=== PATIENT | female | born 1955 | race Caucasian/White ===

== ENCOUNTER 2017-04-30 22:49 | Inpatient (IN) | payer OTHER ==
[~2017-04-30] VITALS: Ht 152.4 cm; Wt 78.0 kg
[~2017-04-30 22:49] MED LIST: ATOR80TA75 PO; CLIN-73 PO; GABA300C16 PO; GLIP5TAB13 PO; LABE100T3 PO; LACT1CAP28 PO; LEVO500T72 PO; LISI40TA9 PO; MTF1000T PO; MULT-761 PO; OMEP20CA16 PO; TRAM-40 PO
[2017-05-01] VITALS (11 sets, daily range): BP systolic 120–162; BP diastolic 57–77; PULSE 80–96; RESP 18–20; Ht 152.4 cm; Wt 78.0 kg
[2017-05-01] MEDS ORDERED: ACET-141 PO (03:38)
[2017-05-01] MEDS ORDERED: FER325 PO (03:38)
[2017-05-01] MEDS ORDERED: POLY17PO3 PO (03:38)
[2017-05-01] MEDS ORDERED: METO-448 PO (03:38)
[2017-05-01] MEDS ORDERED: SERT50TA6 PO (03:38)
[2017-05-01] MEDS ORDERED: GABA300C16 PO (03:38)
[2017-05-01] MEDS ORDERED: VENL75TA2 PO (03:38)
[2017-05-01] MEDS ORDERED: LISI10TA2 PO (03:38)
[2017-05-01] MEDS ORDERED: ATOR80TA75 PO (03:38)
[2017-05-01] MEDS ORDERED: MTF1000T PO (03:38)
[2017-05-01] MEDS ORDERED: ONDANSETRON 4 MG INJ IV PRN (04:00)
[2017-05-01] MEDS ORDERED: GLUCAGON 1 MG INJ IM PRN (04:00)
[2017-05-01] MEDS ORDERED: GLUCOSE GEL 15 GRAM TUBE PO PRN ×2 (04:00)
[2017-05-01] MEDS ORDERED: POLYETHYLENE GLYCOL 17 GM PACKET PO PRN (04:00)
[2017-05-01] MEDS ORDERED: DEXTROSE 50% 50 ML SYRINGE IV PRN ×2 (04:00)
[2017-05-01] MEDS ORDERED: GLUCOSE GEL 15 GRAM TUBE BUCCAL PRN (04:00)
[2017-05-01] MEDS: ACETAMINOPHEN 325 MG TAB PO PRN ×2 (05:39→21:26)
--- NOTE | 2017-05-01 07:13 | HP ---
Date/Time of Note Date/Time of Note DATE: 05/01/17 TIME: 07:09 Assessment/Plan VTE Prophylaxis VTE Prophylaxis Intervention: SCD's Lines/Catheters IV Catheter Type (from Nrs): Saline Lock Urinary Cath still in place: No Assessment/Plan Assessment/Plan 1. Right sided rib pain: pt had rib fx several months ago after she fell down. this is acute on chronic pain - will obtain imaging for evaluation of fx - pain mgmt - physical therapy eval 2. History of hypertension: Blood pressure at goal -Continue antihypertensives with adjustment as needed 3. Diabetes -Insulin while in-house 5. History of dyslipidemia -Continue home med 5. Hyperkalemia, per outside hospital record -We will recheck lab here 6. Debility -Physical therapy evaluation -We will order x-ray of her knee given reported injury several months ago. HPI/ROS Admit Date/Time Admit Date/Time May 01, 2017 at 02:36 Hx of Present Illness This is a 61-year-old obese female with a history of diabetes, hypertension, dyslipidemia, left foot ulcer who initially presented to [facility] c/o right sided abd pain. She was transferred to [facility] for insurance. She is accompanied by her who also provided information. Pt said she fell down several months ago sustaining right sided rib fx and knee pain. Her current pain is where she sustained rib fx. She has been requiring assistance from family to get in and out of bed and for ambulation. At the outside hospital her potassium was noted to be 5.8. PMH/Family/Social Social History Smoking Status: Never smoker Exam/Review of Systems Vital Signs Vitals Vital Signs Date Time Temp Pulse Resp B/P Pulse Ox O2 Delivery O2 Flow Rate FiO2 05/01/17 04:16 91 05/01/17 04:00 97.6 20 120/69 96 Intake and Output 04/30/17 04/30/17 05/01/17 15:00 23:00 07:00 Intake Total 250 ml Balance 250 ml Medications Medications Current Medications Atorvastatin Calcium (Lipitor) 80 mg QHS PO ; Start 05/01/17 at 21:00 Ferrous Sulfate (Ferrous Sulfate (Ec)) 325 mg DAILY PO ; Start 05/01/17 at 09:00 Gabapentin (Neurontin) 300 mg BID PO ; Start 05/01/17 at 09:00 Lisinopril (Zestril) 10 mg DAILY PO ; Start 05/01/17 at 09:00 Metoprolol Tartrate (Lopressor) 25 mg BID PO ; Start 05/01/17 at 09:00 Polyethylene Glycol (Miralax) 17 gm DAILY PRN PO CONSTIPATION; Start 05/01/17 at 04:00 Sertraline HCl (Zoloft) 50 mg DAILY PO ; Start 05/01/17 at 09:00 Venlafaxine HCl (Effexor Xr) 75 mg DAILY PO ; Start 05/01/17 at 09:00 Acetaminophen (Tylenol Tab) 650 mg Q6H PRN PO PAIN AND OR ELEVATED TEMP Last administered on 05/01/17t 05:39; Admin Dose 650 MG; Start 05/01/17 at 04:00 Ondansetron HCl (Zofran Inj) 4 mg Q6H PRN IV NAUSEA AND/OR VOMITING; Start 05/01 at 04:00 Morphine Sulfate (morphine) 2 mg Q4H PRN IV PAIN LEVEL 6-10; Start 05/01/17 at 04:00 Heparin Sodium (Porcine) (Heparin (5000 Units/0.5 ml)) 5,000 unit BID SC ; Start 05/01/17 at 09:00 Diagnostic Test (Pha) (Accu-Chek) 1 ea 02 XX ; Start 05/02/17 at 02:00 Insulin Glargine (Lantus) 10 unit QHS SC ; Start 05/01/17 at 21:00 Miscellaneous Information 1 ea NOTE XX ; Start 05/01/17 at 04:00 Glucose (Glutose) 15 gm Q15M PRN PO DECREASED GLUCOSE; Start 05/01/17 at 04:00 Glucose (Glutose) 22.5 gm Q15M PRN PO DECREASED GLUCOSE; Start 05/01/17 at 04:00 Dextrose (D50w Syringe) 25 ml Q15M PRN IV DECREASED GLUCOSE; Start 05/01/17 at 04:00 Dextrose (D50w Syringe) 50 ml Q15M PRN IV DECREASED GLUCOSE; Start 05/01/17 at 04:00 Glucagon (Glucagen) 1 mg Q15M PRN IM DECREASED GLUCOSE; Start 05/01/17 at 04:00 Glucose (Glutose) 15 gm Q15M PRN BUCCAL DECREASED GLUCOSE; Start 05/01/17 at 04: 00 SKYLER CARMICHAEL MD May 01, 2017 07:13
[2017-05-01 07:47] LABS: ABNORMAL IP MESSAGE 1; BASOPHIL # 0.1 10^3/ul (0.0-0.1); BASOPHILS % 0.9 % (0.0-2.0); EOSINOPHILS # 0.6 10^3/ul (0.0-0.5); EOSINOPHILS % 4.4 % (0.0-7.0); HEMATOCRIT 30.9 % (37.0-47.0); HEMOGLOBIN 9.2 g/dl (12.0-16.0); LYMPHOCYTES # 5.7 10^3/ul (0.8-2.9); LYMPHOCYTES % 42.4 % (15.0-51.0); MEAN CORPUSCULAR HEMOGLOBIN 29.4 pg (29.0-33.0); MEAN CORPUSCULAR HGB CONC 29.8 g/dl (32.0-37.0); MEAN CORPUSCULAR VOLUME 98.7 fl (82.0-101.0); MEAN PLATELET VOLUME 8.8 fl (7.4-10.4); MONOCYTE # 1.1 10^3/ul (0.3-0.9); MONOCYTES % 8.3 % (0.0-11.0); NEUTROPHILS % 42.5 % (39.0-77.0); PLATELET COUNT 546 10^3/UL (140-415); RED BLOOD COUNT 3.13 10^6/ul (4.20-5.40); RED CELL DISTRIBUTION WIDTH 15.8 % (11.5-14.5); WHITE BLOOD COUNT 13.5 10^3/ul (4.8-10.8)
[2017-05-01 07:49] LABS: POSITIVE DIFF @See below
[2017-05-01] MEDS: INSULIN ASPART [NOVOLOG] 3 ML PEN SC SCH ×4 (07:49→21:00)
[2017-05-01 08:18] LABS: ALBUMIN 2.8 g/dl (3.3-4.9); ALBUMIN/GLOBULIN RATIO 1.03; CALCIUM 8.4 mg/dl (8.4-10.2); CREATININE 0.72 mg/dl (0.44-1.00); POTASSIUM 4.1 mmol/L (3.5-5.1); TOTAL PROTEIN 5.5 g/dl (6.1-8.1)
[2017-05-01] MEDS: FERROUS SULFATE (EC) 325 MG TAB PO SCH (08:35)
[2017-05-01] MEDS: SERTRALINE 50 MG TAB PO SCH (08:35)
[2017-05-01] MEDS: GABAPENTIN 300 MG CAP PO SCH ×2 (08:35→21:21)
[2017-05-01] MEDS: LISINOPRIL 10 MG TAB PO SCH (08:36)
[2017-05-01] MEDS: METOPROLOL 25 MG TAB PO SCH ×2 (08:36→21:21)
[2017-05-01] MEDS: VENLAFAXINE (XR) 75 MG CAP PO SCH (08:36)
[2017-05-01] MEDS: HEPARIN 5,000 UNIT/0.5 ML VIAL SC SCH ×2 (08:38→21:25)
--- NOTE | 2017-05-01 18:43 | RADRPT ---
PROCEDURE: XR Chest. CLINICAL INDICATION: Right-sided rib fracture TECHNIQUE: Single frontal chest x-ray. COMPARISON: None. FINDINGS: There is no focal consolidation, pleural effusion or pneumothorax. The aorta and cardiac silhouette are within normal limits. The osseous structures are intact. The rib fractures are all well apprec iated on this study. IMPRESSION: 1. No acute infiltrate. 2. No evidence for pleural effusion or pneumothorax. RPTAT: QQ .Skip Manning MD, Date Time Electronically viewed and signed by .Skip Manning MD, on 05/01/2017 18:43 .d/
--- NOTE | 2017-05-01 18:44 | RADRPT ---
PROCEDURE: XR Knee. CLINICAL INDICATION: Clinical concern is for a fracture. Left knee pain. TECHNIQUE: Three views of the left knee are available for review. COMPARISON: None available FINDINGS: Marginal osteophyte formation and subchondral sclerosis seen at all 3 compartments. Moderate narrow ing is seen at the lateral femorotibial compartment . Severe narrowing is seen at the medial and th e patellofemoral compartments. No acute osseous abnormality. Small joint effusion. IMPRESSION: 1. Tricompartmental arthrosis noting severe narrowing of the medial and patellofemoral compartments . 2. Joint effusion and intrarticular osseous bodies. 3. No definite acute osseous abnormality. RPTAT: QQ .Skip Manning MD, MD Date Time Electronically viewed and signed by .Skip Manning MD, on 05/01/2017 18:44 .d/
--- NOTE | 2017-05-01 18:47 | RADRPT ---
PROCEDURE: XR Knee. CLINICAL INDICATION: Knee pain TECHNIQUE: Three views of the right knee are available for review. COMPARISON: None available FINDINGS: There is a linear band of sclerosis at the proximal tibial diaphysis, suspicious for a stress/insuff iciency type fracture. Bulky marginal osteophyte formation and subchondral sclerosis is seen at all 3 compartments. Severe narrowing is seen at the medial and patellofemoral compartments. Moderate narrowing is seen at the lateral femoral tibial compartment. Joint effusion. Intrarticular bodies a re likely present. IMPRESSION: 1. Tricompartmental arthrosis dominant the medial and patellofemoral compartments noting severe dalila nt space narrowing. 2. Linear band of sclerosis seen at the proximal tibial metadiaphysis, suspicious for a stress/insu fficiency type fracture. MRI of the knee may be obtained for additional assessment. 3. Joint effusion. RPTAT: QQ .Skip Manning MD, MD Date Time Electronically viewed and signed by .Skip Manning MD, on 05/01/2017 18:46 .d/
[2017-05-01] MEDS: ATORVASTATIN 80 MG TAB PO SCH (21:21)
[2017-05-01] MEDS: INSULIN GLARGINE [LANtus] 3 ML PEN SC SCH (21:25)
[2017-05-02] VITALS (9 sets, daily range): BP systolic 119–145; BP diastolic 62–74; PULSE 76–92; RESP 17–21
[2017-05-02] MEDS: ACCU-CHEK XX SCH ×2 (02:00→23:40)
[2017-05-02] MEDS ORDERED: ACCU-CHEK XX SCH (02:00)
[2017-05-02] MEDS: INSULIN ASPART [NOVOLOG] 3 ML PEN SC SCH ×4 (07:40→20:36)
[2017-05-02] MEDS: FERROUS SULFATE (EC) 325 MG TAB PO SCH (08:16)
[2017-05-02] MEDS: VENLAFAXINE (XR) 75 MG CAP PO SCH (08:16)
[2017-05-02] MEDS: LISINOPRIL 10 MG TAB PO SCH (08:17)
[2017-05-02] MEDS: SERTRALINE 50 MG TAB PO SCH (08:17)
[2017-05-02] MEDS: GABAPENTIN 300 MG CAP PO SCH ×2 (08:17→20:36)
[2017-05-02] MEDS: METOPROLOL 25 MG TAB PO SCH ×2 (08:18→20:36)
[2017-05-02] MEDS: HEPARIN 5,000 UNIT/0.5 ML VIAL SC SCH ×2 (08:19→20:35)
[2017-05-02 08:20] LABS: ABNORMAL IP MESSAGE 1; BASOPHIL # 0.1 10^3/ul (0.0-0.1); BASOPHILS % 0.6 % (0.0-2.0); EOSINOPHILS # 0.6 10^3/ul (0.0-0.5); EOSINOPHILS % 5.3 % (0.0-7.0); HEMATOCRIT 31.9 % (37.0-47.0); HEMOGLOBIN 9.8 g/dl (12.0-16.0); LYMPHOCYTES # 5.4 10^3/ul (0.8-2.9); LYMPHOCYTES % 47.6 % (15.0-51.0); MEAN CORPUSCULAR HEMOGLOBIN 29.2 pg (29.0-33.0); MEAN CORPUSCULAR HGB CONC 30.7 g/dl (32.0-37.0); MEAN CORPUSCULAR VOLUME 94.9 fl (82.0-101.0); MEAN PLATELET VOLUME 8.9 fl (7.4-10.4); MONOCYTE # 0.8 10^3/ul (0.3-0.9); MONOCYTES % 6.8 % (0.0-11.0); PLATELET COUNT 564 10^3/UL (140-415); RED BLOOD COUNT 3.36 10^6/ul (4.20-5.40); RED CELL DISTRIBUTION WIDTH 15.7 % (11.5-14.5); WHITE BLOOD COUNT 11.3 10^3/ul (4.8-10.8)
[2017-05-02 08:33] LABS: POSITIVE DIFF @See below
[2017-05-02 08:37] LABS: CALCIUM 8.9 mg/dl (8.4-10.2); CREATININE 0.59 mg/dl (0.44-1.00); POTASSIUM 3.9 mmol/L (3.5-5.1)
[2017-05-02] MEDS ORDERED: LISI10TA2 PO (10:08)
[2017-05-02] MEDS ORDERED: HYDR-906 PO (10:08)
[2017-05-02] MEDS ORDERED: LEVO500T72 PO (10:08)
[2017-05-02] MEDS ORDERED: METO-448 PO (10:08)
--- NOTE | 2017-05-02 10:17 | PDOCDIS ---
DELORIS GARCIA 05/02/17 1017: Discharge Instructions DIAGNOSIS Discharge Diagnosis 1. Right sided rib pain: pt had rib fx several months ago after she fell down. acute on chronic pain 2. History of hypertension: 3. Diabetes 5. History of dyslipidemia 5. Hyperkalemia, 6. Debility HOME CARE INSTRUCTIONS: Special Diet: carbohydrate controlled FOLLOW UP/APPOINTMENTS Follow-up Plan 1. Follow up with your primary care provider in one week MARIA DEL CARMEN AGUILAR NP 05/06/17 1509: Discharge Instructions DIAGNOSIS Discharge Diagnosis UTI CONDITION Patient Condition: Stable OTHER ORDERS: Other Orders: 1. Carbohydrate controlled diet. 2. Take medications as per prescription. Continue IV antibiotics until 2016. DELORIS GARCIA May 02, 2017 10:17 MARIA DEL CARMEN AGUILAR NP May 06, 2017 15:09
--- NOTE | 2017-05-02 13:20 | PN ---
Date/Time of Note Date/Time of Note DATE: 05/02/17 TIME: 13:12 Assessment/Plan VTE Prophylaxis VTE Prophylaxis Intervention: heparin Lines/Catheters IV Catheter Type (from Nrsg): Saline Lock Assessment/Plan Chief Complaint/Hosp Course Assessment and plan 1. Right-sided rib pain. Patient reportedly had fracture of this several months ago when she fell down. Likely acute on chronic. Continue with pain management. Improving at present. 2. Deconditioning. Patient with reports of bilateral knee pain. Patient noted with arthritis. Physical therapy to follow. 3. Suspect stress fracture of proximal tibial metadiaphysis (right). Will get MRI of right knee 4. Diabetes. Continue insulin regimen 5. Dyslipidemia. Continue on statin medication 6. Hypertension. Continue antihypertensives and adjust needed Disposition plan: MRI of the right knee. Await physical therapy evaluation. Will plan for possible halfway facility versus ARU upon d/c Discussed plan of care with Dr. Nelson Problems: Subjective 24 Hr Interval Summary Free Text/Dictation Still reports having pain on left knee. Exam/Review of Systems Vital Signs Vitals Vital Signs Date Time Temp Pulse Resp B/P Pulse Ox O2 Delivery O2 Flow Rate FiO2 05/02/17 12:06 76 05/02/17 12:05 97.7 18 129/74 98 Intake and Output 05/01/17 05/01/17 05/02/17 15:00 23:00 07:00 Intake Total 400 ml 500 ml Output Total 750 ml Balance 400 ml -250 ml Exam Constitutional: alert, oriented Psych: nl mood/affect Head: normocephalic Respiratory: clear to auscultation, normal air movement Cardiovascular: regular rate and rhythm Gastrointestinal: non-tender, soft Musculoskeletal: swelling (left knee) Neurological: [employer] II-XII intact, nl mental status, nl speech Skin: nl turgor Results Result Diagram: 05/02/17 0733 05/02/17 0733 Results 24 hrs Laboratory Tests Test 05/01/17 17:13 05/01/17 21:20 05/02/17 07:33 05/02/17 11:21 Bedside Glucose 85 100 92 99 White Blood Count 11.3 H Red Blood Count 3.36 L Hemoglobin 9.8 L Hematocrit 31.9 L Mean Corpuscular Volume 94.9 Mean Corpuscular Hemoglobin 29.2 Mean Corpuscular Hemoglobin Concent 30.7 L Red Cell Distribution Width 15.7 H Platelet Count 564 H Mean Platelet Volume 8.9 Neutrophils % 39.0 Lymphocytes % 47.6 Monocytes % 6.8 Eosinophils % 5.3 Basophils % 0.6 Nucleated Red Blood Cells % 0.0 Neutrophils # (Manual) 4.4 Lymphocytes # 5.4 H Monocytes # 0.8 Eosinophils # 0.6 H Basophils # 0.1 Nucleated Red Blood Cells # 0.0 Sodium Level 141 Potassium Level 3.9 Chloride Level 108 Carbon Dioxide Level 25 Anion Gap 12 Blood Urea Nitrogen 7 Creatinine 0.59 Glucose Level 90 Calcium Level 8.9 Medications Medications Current Medications Atorvastatin Calcium (Lipitor) 80 mg QHS PO Last administered on 05/01/17 21:21 ; Admin Dose 80 MG; Start 05/01/17 at 21:00 Ferrous Sulfate (Ferrous Sulfate (Ec)) 325 mg DAILY PO Last administered on 05/02 08:16; Admin Dose 325 MG; Start 05/01/17 at 09:00 Gabapentin (Neurontin) 300 mg BID PO Last administered on 05/02/17 08:17; Admin Dose 300 MG; Start 05/01/17 at 09:00 Lisinopril (Zestril) 10 mg DAILY PO Last administered on 05/02/17 08:17; Admin Dose 10 MG; Start 05/01/17 at 09:00 Metoprolol Tartrate (Lopressor) 25 mg BID PO Last administered on 05/02/17 08: 18; Admin Dose 25 MG; Start 05/01/17 at 09:00 Polyethylene Glycol (Miralax) 17 gm DAILY PRN PO CONSTIPATION; Start 05/01/17 at 04:00 Sertraline HCl (Zoloft) 50 mg DAILY PO Last administered on 05/02/17 08:17; Admin Dose 50 MG; Start 05/01/17 at 09:00 Venlafaxine HCl (Effexor Xr) 75 mg DAILY PO Last administered on 05/02/17 08:16 ; Admin Dose 75 MG; Start 05/01/17 at 09:00 Acetaminophen (Tylenol Tab) 650 mg Q6H PRN PO PAIN AND OR ELEVATED TEMP Last administered on 05/01/17 21:26; Admin Dose 650 MG; Start 05/01/17 at 04:00 Ondansetron HCl (Zofran Inj) 4 mg Q6H PRN IV NAUSEA AND/OR VOMITING; Start 05/01 at 04:00 Morphine Sulfate (morphine) 2 mg Q4H PRN IV PAIN LEVEL 6-10; Start 05/01/17 at 04:00 Heparin Sodium (Porcine) (Heparin (5000 Units/0.5 ml)) 5,000 unit BID SC Last administered on 05/02/17 08:19; Admin Dose 5,000 UNIT; Start 05/01/17 at 09:00 Diagnostic Test (Pha) (Accu-Chek) 1 ea 02 XX ; Start 05/02/17 at 02:00 Insulin Glargine (Lantus) 10 unit QHS SC Last administered on 05/01/17 21:25; Admin Dose 10 UNIT; Start 05/01/17 at 21:00 Miscellaneous Information 1 ea NOTE XX ; Start 05/01/17 at 04:00 Glucose (Glutose) 15 gm Q15M PRN PO DECREASED GLUCOSE; Start 05/01/17 at 04:00 Glucose (Glutose) 22.5 gm Q15M PRN PO DECREASED GLUCOSE; Start 05/01/17 at 04:00 Dextrose (D50w Syringe) 25 ml Q15M PRN IV DECREASED GLUCOSE; Start 05/01/17 at 04:00 Dextrose (D50w Syringe) 50 ml Q15M PRN IV DECREASED GLUCOSE; Start 05/01/17 at 04:00 Glucagon (Glucagen) 1 mg Q15M PRN IM DECREASED GLUCOSE; Start 05/01/17 at 04:00 Glucose (Glutose) 15 gm Q15M PRN BUCCAL DECREASED GLUCOSE; Start 05/01/17 at 04: 00 DELORIS GARCIA May 02, 2017 13:20
--- NOTE | 2017-05-02 16:53 | RADRPT ---
PROCEDURE: MRI OF THE RIGHT KNEE CLINICAL INDICATION: Right knee pain, concern for fracture TECHNIQUE: MRI images of the right knee were obtained in multiple planes utilizing multiple pulse sequences. Images were interpreted on a high-resolution PACS system. COMPARISON: Radiographs of the right knee dated May 01, 2017 and MRI of the left knee Sept2016 FINDINGS: Medial compartment: There is extensive degenerative tearing and maceration of the medial meniscus (s agittal 9 and coronal 15). There is full-thickness chondral loss throughout the medial femorotibia l compartment chronic bone remodelling of the medial femoral condyle and large marginal osteophytes. There is a stress response at the medial tibial plateau. The medial supporting structures are intac t. Lateral compartment: There is no evidence for meniscal degeneration or tear. There is mild lateral femorotibial compartment chondromalacia. There is avascular necrosis at the central/posterior later al femoral condyle (sagittal 20) without evidence of collapse. Intercondylar notch: There is a chronic full-thickness anterior cruciate ligament tear. The posteri or cruciate ligament is intact. Patellofemoral joint: There is moderate to high-grade chondral loss at the central trochlea and mode rate chondromalacia over the patella with large marginal osteophyte formation. The quadriceps and t he patellar tendons are intact. Other findings: There is a moderate sized knee joint effusion bodies decompressing posteriorly into the subpopliteus hiatus.. There is a band of sclerosis along the medial aspect of the proximal tibi al metaphysis (coronal 15), without edema, probably healing changes from a previous stress or insuff iciency fracture. IMPRESSION: 1. Linear band of sclerosis at the proximal tibial metaphysis medially, without edema, likely healin g changes from a previous stress or insufficiency fracture. No acute fracture is identified. 2. Tricompartmental osteoarthrosis, severe and predominant medial femorotibial compartment with a mi ld stress response at the medial tibial plateau. 3. Extensive degenerative tearing of the body and posterior horn of the medial meniscus. 4. Chronic full-thickness anterior cruciate ligament tear. 5. Region of avascular necrosis at the central/posterior lateral femoral condyle without collapse. 6. Moderate sized knee joint effusion with synovitis and numerous bodies decompressing posteriorly i nto the subpopliteus hiatus. RPTAT: UU .Bay Dozier MD, MD Date Time Electronically viewed and signed by .Bay Dozier MD, MD on 05/02/2017 16:53 .K/
--- NOTE | 2017-05-02 16:56 | RADRPT ---
PROCEDURE: MRI OF THE LEFT KNEE CLINICAL INDICATION: Left knee pain, concern for fracture. TECHNIQUE: MRI images of the left knee were obtained utilizing in multiple planes using multiple p ulse sequences. Images were interpreted on a high-resolution PACS system. COMPARISON: None available. FINDINGS: Medial compartment: There is extensive degenerative tearing and partial maceration of the body and p osterior horn of the medial meniscus (coronal 20). There are large marginal osteophytes with diffus e full-thickness chondral loss. There is bowing of the medial supporting structures, which are inta ct.. Lateral compartment: There is no evidence for meniscal degeneration or tear. There is mild lateral femorotibial compartment chondromalacia and fissuring with marginal osteophyte formation. The later al supporting structures are intact.. Intercondylar notch: There is a chronic full-thickness anterior cruciate ligament tear (sagittal 13) . The posterior cruciate ligament is somewhat degenerated but intact. Patellofemoral joint: There is moderate to high-grade chondral loss at the central trochlea and mode rate grade chondral loss over the patella. The quadriceps and the patellar tendons are intact. Other findings: There is a moderate sized knee joint effusion with synovitis. There are numerous catie dies posteriorly, some decompressing into the subpopliteus hiatus. There is no evidence of acute fr acture. There is atrophy of the medial and lateral gastrocnemius musculature, more prominent than th e contralateral knee. IMPRESSION: 1. Tricompartmental osteoarthrosis, severe and predominant the medial femorotibial compartment. 2. Extensive degenerative tearing and partial maceration of the body and posterior of the medial men iscus. 3. Chronic full-thickness anterior cruciate ligament tear. 4. Moderate sized knee joint effusion with synovitis and numerous posterior bodies, some decompressi ng into the subpopliteus hiatus. 5. Particularly prominent medial and lateral gastrocnemius muscle atrophy. 6. No evidence of acute osseous abnormality. RPTAT: UU .Bay Dozier MD, Date Time Electronically viewed and signed by .Bay Dozier MD, on 05/02/2017 16:56 .K/
[2017-05-02] MEDS: INSULIN GLARGINE [LANtus] 3 ML PEN SC SCH (20:35)
[2017-05-02] MEDS: ATORVASTATIN 80 MG TAB PO SCH (20:35)
[2017-05-03] VITALS (12 sets, daily range): BP systolic 93–110; BP diastolic 52–65; PULSE 73–90; RESP 20–21
[2017-05-03] MEDS: PHENAZOPYRIDINE 100 MG TAB PO SCH ×4 (01:31→21:26)
[2017-05-03] MEDS: morphine 2 MG INJ IV PRN ×2 (02:46→18:49)
[2017-05-03] MEDS: ACETAMINOPHEN 325 MG TAB PO PRN ×2 (06:05→18:58)
[2017-05-03 07:08] LABS: BASOPHIL # 0.1 10^3/ul (0.0-0.1); BASOPHILS % 0.7 % (0.0-2.0); EOSINOPHILS # 0.7 10^3/ul (0.0-0.5); HEMATOCRIT 30.8 % (37.0-47.0); HEMOGLOBIN 9.4 g/dl (12.0-16.0); LYMPHOCYTES # 4.8 10^3/ul (0.8-2.9); MEAN CORPUSCULAR HEMOGLOBIN 29.2 pg (29.0-33.0); MEAN CORPUSCULAR HGB CONC 30.5 g/dl (32.0-37.0); MEAN CORPUSCULAR VOLUME 95.7 fl (82.0-101.0); MEAN PLATELET VOLUME 8.9 fl (7.4-10.4); MONOCYTE # 0.8 10^3/ul (0.3-0.9); MONOCYTES % 6.7 % (0.0-11.0); PLATELET COUNT 472 10^3/UL (140-415); RED BLOOD COUNT 3.22 10^6/ul (4.20-5.40); RED CELL DISTRIBUTION WIDTH 15.7 % (11.5-14.5); WHITE BLOOD COUNT 11.3 10^3/ul (4.8-10.8)
[2017-05-03 07:38] LABS: CALCIUM 8.5 mg/dl (8.4-10.2); CREATININE 0.59 mg/dl (0.44-1.00); POTASSIUM 3.4 mmol/L (3.5-5.1)
[2017-05-03] MEDS: INSULIN ASPART [NOVOLOG] 3 ML PEN SC SCH ×4 (08:00→21:00)
[2017-05-03] MEDS: VENLAFAXINE (XR) 75 MG CAP PO SCH (08:07)
[2017-05-03] MEDS: GABAPENTIN 300 MG CAP PO SCH ×2 (08:07→21:02)
[2017-05-03] MEDS: FERROUS SULFATE (EC) 325 MG TAB PO SCH (08:07)
[2017-05-03] MEDS: METOPROLOL 25 MG TAB PO SCH ×2 (08:08→21:00)
[2017-05-03] MEDS: SERTRALINE 50 MG TAB PO SCH (08:08)
[2017-05-03] MEDS: HEPARIN 5,000 UNIT/0.5 ML VIAL SC SCH ×2 (08:09→21:07)
[2017-05-03] MEDS: LISINOPRIL 10 MG TAB PO SCH (09:00)
--- NOTE | 2017-05-03 14:20 | PN ---
Date/Time of Note Date/Time of Note DATE: 05/03/17 TIME: 14:18 Assessment/Plan VTE Prophylaxis VTE Prophylaxis Intervention: heparin Lines/Catheters IV Catheter Type (from [facility]): Saline Lock Urinary Cath still in place: No Assessment/Plan Chief Complaint/Hosp Course 1. Right-sided chest pain. Recent history of chest wall trauma secondary to fall. Current chest x-ray negative for any rib fractures. Continue pain control. 2. Bilateral knee pain. Bilateral knee MRI showing degenerative changes with no evidence of any acute fractures. Continue pain control. 3. Deconditioning. Continue physical therapy. Physical therapy recommending acute rehabilitation evaluation. Will obtain acute rehabilitation evaluation. 4. Type 2 diabetes mellitus. Continue sliding scale insulin. Blood sugars well controlled. 5. Normocytic, normochromic anemia. Monitor H&H closely. Obtain iron panel. 6. Essential hypertension. Continue antihypertensives. 7. Depression. Continue antidepressants. 8. Dyslipidemia. Continue statins. 9. Fluids, electrolytes, and nutrition. Carbohydrate controlled diet. 10. DVT prophylaxis with subcutaneous heparin. 11. Plan. Continue pain control. Replete potassium. Obtain acute rehabilitation evaluation. Case discussed with Dr. Haji. Problems: Subjective 24 Hr Interval Summary Free Text/Dictation Denies any chest pain. Complains of bilateral knee pain. Exam/Review of Systems Vital Signs Vitals Vital Signs Date Time Temp Pulse Resp B/P Pulse Ox O2 Delivery O2 Flow Rate FiO2 05/03/17 12:01 73 05/03/17 11:41 99.1 20 98/58 96 Intake and Output 05/02/17 05/02/17 05/03/17 15:00 23:00 07:00 Intake Total 950 ml Balance 950 ml Exam General: Obese 61 year-old female lying in bed in no apparent distress. HEENT: Normocephalic, atraumatic. Eyes: Anicteric sclerae, conjunctivae clear. ENT: Nasal septum midline, oral mucosa moist. Neck supple, no JVD noticed. Respiratory: Bilaterally clear breath sounds. No use of accessory muscles of respiration. No adventitious breath sounds. Cardiovascular: S1, S2 heard. No murmurs or gallops. Abdomen: Soft, nontender, and nondistended. Bowel sounds positive in all 4 quadrants. Genitourinary: Deferred. Extremities: No cyanosis, no clubbing, no edema. Peripheral pulses palpable. Bilateral knee joint tenderness. Neurologic: Cranial nerves II through XII grossly intact. The patient is awake, alert, and oriented. Skin: Normal skin turgor. No skin rashes. Results Result Diagram: 05/03/1762705/03/17627 Results 24 hrs Laboratory Tests Test 05/02/17 17:22 05/02/17 20:05 05/03/17 06:28 05/03/17 08:06 Bedside Glucose 116 115 90 White Blood Count 11.3 H Red Blood Count 3.22 L Hemoglobin 9.4 L Hematocrit 30.8 L Mean Corpuscular Volume 95.7 Mean Corpuscular Hemoglobin 29.2 Mean Corpuscular Hemoglobin Concent 30.5 L Red Cell Distribution Width 15.7 H Platelet Count 472 H Mean Platelet Volume 8.9 Neutrophils % 44.0 Lymphocytes % 42.0 Monocytes % 6.7 Eosinophils % 6.0 Basophils % 0.7 Nucleated Red Blood Cells % 0.0 Neutrophils # (Manual) 5.0 Lymphocytes # 4.8 H Monocytes # 0.8 Eosinophils # 0.7 H Basophils # 0.1 Nucleated Red Blood Cells # 0.0 Sodium Level 137 Potassium Level 3.4 L Chloride Level 105 Carbon Dioxide Level 26 Anion Gap 9 Blood Urea Nitrogen 7 Creatinine 0.59 Glucose Level 90 Calcium Level 8.5 Test 05/03/17 12:07 Bedside Glucose 93 Medications Medications Current Medications Atorvastatin Calcium (Lipitor) 80 mg QHS PO Last administered on 05/02/17 20:35 ; Admin Dose 80 MG; Start 05/01/17 at 21:00 Ferrous Sulfate (Ferrous Sulfate (Ec)) 325 mg DAILY PO Last administered on 05/03 08:07; Admin Dose 325 MG; Start 05/01/17 at 09:00 Gabapentin (Neurontin) 300 mg BID PO Last administered on 05/03/17 08:07; Admin Dose 300 MG; Start 05/01/17 at 09:00 Lisinopril (Zestril) 10 mg DAILY PO Last administered on 05/02/17 08:17; Admin Dose 10 MG; Start 05/01/17 at 09:00 Metoprolol Tartrate (Lopressor) 25 mg BID PO Last administered on 05/03/17 08: 08; Admin Dose 25 MG; Start 05/01/17 at 09:00 Polyethylene Glycol (Miralax) 17 gm DAILY PRN PO CONSTIPATION; Start 05/01/17 at 04:00 Sertraline HCl (Zoloft) 50 mg DAILY PO Last administered on 05/03/17 08:08; Admin Dose 50 MG; Start 05/01/17 at 09:00 Venlafaxine HCl (Effexor Xr) 75 mg DAILY PO Last administered on 05/03/17 08:07 ; Admin Dose 75 MG; Start 05/01/17 at 09:00 Acetaminophen (Tylenol Tab) 650 mg Q6H PRN PO PAIN AND OR ELEVATED TEMP Last administered on 05/03/17 06:05; Admin Dose 650 MG; Start 05/01/17 at 04:00 Ondansetron HCl (Zofran Inj) 4 mg Q6H PRN IV NAUSEA AND/OR VOMITING; Start 05/01 at 04:00 Morphine Sulfate (morphine) 2 mg Q4H PRN IV PAIN LEVEL 6-10 Last administered on 05/03/17 02:46; Admin Dose 2 MG; Start 05/01/17 at 04:00 Heparin Sodium (Porcine) (Heparin (5000 Units/0.5 ml)) 5,000 unit BID SC Last administered on 05/03/17 08:09; Admin Dose 5,000 UNIT; Start 05/01/17 at 09:00 Diagnostic Test (Pha) (Accu-Chek) 1 ea 02 XX ; Start 05/02/17 at 02:00 Insulin Glargine (Lantus) 10 unit QHS SC Last administered on 05/02/17 20:35; Admin Dose 10 UNIT; Start 05/01/17 at 21:00 Miscellaneous Information 1 ea NOTE XX ; Start 05/01/17 at 04:00 Glucose (Glutose) 15 gm Q15M PRN PO DECREASED GLUCOSE; Start 05/01/17 at 04:00 Glucose (Glutose) 22.5 gm Q15M PRN PO DECREASED GLUCOSE; Start 05/01/17 at 04:00 Dextrose (D50w Syringe) 25 ml Q15M PRN IV DECREASED GLUCOSE; Start 05/01/17 at 04:00 Dextrose (D50w Syringe) 50 ml Q15M PRN IV DECREASED GLUCOSE; Start 05/01/17 at 04:00 Glucagon (Glucagen) 1 mg Q15M PRN IM DECREASED GLUCOSE; Start 05/01/17 at 04:00 Glucose (Glutose) 15 gm Q15M PRN BUCCAL DECREASED GLUCOSE; Start 05/01/17 at 04: 00 Phenazopyridine HCl (Pyridium) 100 mg Q8 PO Last administered on 05/03/17t 06:04 ; Admin Dose 100 MG; Start 05/03/17 at 01:00 Potassium Chloride (Klor-Con 10) 30 meq ONCE ONCE PO ; Start 05/03/17 at 14:30; Stop 05/03/17 at 14:31; Status UNMARIA DEL CARMEN MUSA NP May 03, 2017 14:20
[2017-05-03] MEDS ORDERED: POTASSIUM CHLORIDE (SR) 10 MEQ TAB PO ONE (14:30)
[2017-05-03 14:56] LABS: ADD UMIC YES; UR ASCORBIC ACID NEGATIVE (NEGATIVE); UR BACTERIA FEW /HPF (NONE SEEN); UR BILIRUBIN (Dip) NEGATIVE (NEGATIVE); UR BLOOD (Dip) NEGATIVE (NEGATIVE); UR BUDDING YEAST FEW /HPF (NONE SEEN); UR CLARITY CLEAR (CLEAR); UR COLOR YELLOW (YELLOW); UR GLUCOSE (Dip) NEGATIVE (NEGATIVE); UR KETONES (Dip) NEGATIVE (NEGATIVE); UR LEUKOCYTE ESTERASE (Dip) TRACE Leu/ul (NEGATIVE); UR NITRITE (Dip) NEGATIVE (NEGATIVE); UR RBC 6 /HPF (0-5); UR SPECIFIC GRAVITY (Dip) 1.003 (1.003-1.030); UR TOTAL PROTEIN (Dip) NEGATIVE (NEGATIVE); UR UROBILINOGEN (Dip) NEGATIVE (NEGATIVE)
[2017-05-03] MEDS: ATORVASTATIN 80 MG TAB PO SCH (21:02)
[2017-05-03] MEDS: INSULIN GLARGINE [LANtus] 3 ML PEN SC SCH (21:09)
[2017-05-03] MEDS: ACCU-CHEK XX SCH (21:26)
[2017-05-04] VITALS (11 sets, daily range): BP systolic 104–138; BP diastolic 55–97; PULSE 77–100; RESP 19–20
[2017-05-04] MEDS: PHENAZOPYRIDINE 100 MG TAB PO SCH ×3 (06:24→20:56)
[2017-05-04] MEDS: ACETAMINOPHEN 325 MG TAB PO PRN (06:34)
[2017-05-04 07:42] LABS: BASOPHIL # 0.1 10^3/ul (0.0-0.1); BASOPHILS % 0.7 % (0.0-2.0); EOSINOPHILS # 0.7 10^3/ul (0.0-0.5); EOSINOPHILS % 8.2 % (0.0-7.0); HEMATOCRIT 30.4 % (37.0-47.0); HEMOGLOBIN 9.3 g/dl (12.0-16.0); LYMPHOCYTES # 4.1 10^3/ul (0.8-2.9); MEAN CORPUSCULAR HEMOGLOBIN 29.4 pg (29.0-33.0); MEAN CORPUSCULAR HGB CONC 30.6 g/dl (32.0-37.0); MEAN CORPUSCULAR VOLUME 96.2 fl (82.0-101.0); MEAN PLATELET VOLUME 9.4 fl (7.4-10.4); MONOCYTE # 0.6 10^3/ul (0.3-0.9); MONOCYTES % 7.6 % (0.0-11.0); PLATELET COUNT 479 10^3/UL (140-415); RED BLOOD COUNT 3.16 10^6/ul (4.20-5.40); RED CELL DISTRIBUTION WIDTH 15.7 % (11.5-14.5); WHITE BLOOD COUNT 8.4 10^3/ul (4.8-10.8)
[2017-05-04 08:00] LABS: IRON 33 ug/dl (35-150)
[2017-05-04] MEDS: INSULIN ASPART [NOVOLOG] 3 ML PEN SC SCH ×4 (08:00→20:52)
[2017-05-04 08:07] LABS: CALCIUM 8.9 mg/dl (8.4-10.2); CREATININE 0.58 mg/dl (0.44-1.00); MAGNESIUM 1.5 mg/dl (1.7-2.5); PHOSPHORUS 5.1 mg/dl (2.5-4.9); POTASSIUM 3.5 mmol/L (3.5-5.1)
[2017-05-04 08:10] LABS: TOTAL IRON BINDING CAPACITY 175 ug/dl (241-421)
[2017-05-04 08:20] LABS: CHOL/HDL RATIO 2.8 RATIO
[2017-05-04] MEDS: SERTRALINE 50 MG TAB PO SCH (08:21)
[2017-05-04] MEDS: VENLAFAXINE (XR) 75 MG CAP PO SCH (08:21)
[2017-05-04] MEDS: GABAPENTIN 300 MG CAP PO SCH ×2 (08:21→20:48)
[2017-05-04] MEDS: FERROUS SULFATE (EC) 325 MG TAB PO SCH (08:21)
[2017-05-04] MEDS: LISINOPRIL 10 MG TAB PO SCH (08:22)
[2017-05-04] MEDS: METOPROLOL 25 MG TAB PO SCH ×2 (08:22→20:49)
[2017-05-04] MEDS: HEPARIN 5,000 UNIT/0.5 ML VIAL SC SCH ×2 (08:23→20:50)
[2017-05-04] MEDS ORDERED: MAGNESIUM SULFATE 2 GM/50 ML 50 ML IVPB ONE (11:00)
--- NOTE | 2017-05-04 11:05 | PN ---
Date/Time of Note Date/Time of Note DATE: 05/04/17 TIME: 11:03 Assessment/Plan VTE Prophylaxis VTE Prophylaxis Intervention: heparin Lines/Catheters IV [facility]ter Type (from [facility]): Peripheral IV Urinary Cath still in place: No Assessment/Plan Chief Complaint/Hosp Course 1. Right-sided chest pain. Recent history of chest wall trauma secondary to fall. Current chest x-ray negative for any rib fractures. Continue pain control. 2. Bilateral knee pain. Bilateral knee MRI showing degenerative changes with no evidence of any acute fractures. Continue pain control. 3. Deconditioning. Continue physical therapy. Physical therapy recommending acute rehabilitation evaluation. 4. Type 2 diabetes mellitus. Continue sliding scale insulin. Blood sugars well controlled. 5. Normocytic, normochromic anemia. Monitor H&H closely. Obtain iron panel. 6. Essential hypertension. Continue antihypertensives. 7. Depression. Continue antidepressants. 8. Dyslipidemia. Continue statins. 9. UTI. Start antibiotics. 10. Fluids, electrolytes, and nutrition. Carbohydrate controlled diet. 11. DVT prophylaxis with subcutaneous heparin. 12. Plan. Continue pain control. Start antibiotics for UTI. Plan is to discharge the patient to a SNF after final urine cultures are available. Case discussed with Dr. Haji. Problems: Subjective 24 Hr Interval Summary Free Text/Dictation Denies any complaints. Has B/L knee pain with weightbearing. Exam/Review of Systems Vital Signs Vitals Vital Signs Date Time Temp Pulse Resp B/P Pulse Ox O2 Delivery O2 Flow Rate FiO2 05/04/17 08:00 100 05/04/17 07:54 98.5 20 111/60 94 Intake and Output 05/03/17 05/03/17 05/04/17 15:00 23:00 07:00 Intake Total 1000 ml 300 ml Balance 1000 ml 300 ml Exam General: Obese 61 year-old female lying in bed in no apparent distress. HEENT: Normocephalic, atraumatic. Eyes: Anicteric sclerae, conjunctivae clear. ENT: Nasal septum midline, oral mucosa moist. Neck supple, no JVD noticed. Respiratory: Bilaterally clear breath sounds. No use of accessory muscles of respiration. No adventitious breath sounds. Cardiovascular: S1, S2 heard. No murmurs or gallops. Abdomen: Soft, nontender, and nondistended. Bowel sounds positive in all 4 quadrants. Genitourinary: Deferred. Extremities: No cyanosis, no clubbing, no edema. Peripheral pulses palpable. Bilateral knee joint tenderness. Neurologic: Cranial nerves II through XII grossly intact. The patient is awake, alert, and oriented. Skin: Normal skin turgor. No skin rashes. Results Result Diagram: 05/04/17 0617 05/04/17 0616 Results 24 hrs Laboratory Tests Test 05/03/17 12:07 05/03/17 14:55 05/03/17 17:41 05/03/17 20:14 Bedside Glucose 93 102 111 Hemoglobin A1c 5.3 Test 05/04/17 06:16 05/04/17 06:17 05/04/17 07:50 Sodium Level 139 Potassium Level 3.5 Chloride Level 109 Carbon Dioxide Level 26 Anion Gap 8 Blood Urea Nitrogen 9 Creatinine 0.58 Glucose Level 77 Calcium Level 8.9 Phosphorus Level 5.1 H Magnesium Level 1.5 L White Blood Count 8.4 # Red Blood Count 3.16 L Hemoglobin 9.3 L Hematocrit 30.4 L Mean Corpuscular Volume 96.2 Mean Corpuscular Hemoglobin 29.4 Mean Corpuscular Hemoglobin Concent 30.6 L Red Cell Distribution Width 15.7 H Platelet Count 479 H Mean Platelet Volume 9.4 Neutrophils % 34.0 L Lymphocytes % 49.0 Monocytes % 7.6 Eosinophils % 8.2 H Basophils % 0.7 Nucleated Red Blood Cells % 0.0 Neutrophils # (Manual) 2.8 Lymphocytes # 4.1 H Monocytes # 0.6 Eosinophils # 0.7 H Basophils # 0.1 Nucleated Red Blood Cells # 0.0 Iron Level 33 L Total Iron Binding Capacity 175 L Percent Iron Saturation 19 L Ferritin 178.0 Triglycerides Level 207 H Cholesterol Level 126 LDL Cholesterol, Calculated 40 HDL Cholesterol 45 Cholesterol/HDL Ratio 2.8 Bedside Glucose 83 Medications Medications Current Medications Atorvastatin Calcium (Lipitor) 80 mg QHS PO Last administered on 05/03/17 21:02 ; Admin Dose 80 MG; Start 05/01/17 at 21:00 Ferrous Sulfate (Ferrous Sulfate (Ec)) 325 mg DAILY PO Last administered on 05/04 08:21; Admin Dose 325 MG; Start 05/01/17 at 09:00 Gabapentin (Neurontin) 300 mg BID PO Last administered on 05/04/17 08:21; Admin Dose 300 MG; Start 05/01/17 at 09:00 Lisinopril (Zestril) 10 mg DAILY PO Last administered on 05/02/17 08:17; Admin Dose 10 MG; Start 05/01/17 at 09:00 Metoprolol Tartrate (Lopressor) 25 mg BID PO Last administered on 05/04/17 08: 22; Admin Dose 25 MG; Start 05/01/17 at 09:00 Polyethylene Glycol (Miralax) 17 gm DAILY PRN PO CONSTIPATION; Start 05/01/17 at 04:00 Sertraline HCl (Zoloft) 50 mg DAILY PO Last administered on 05/04/17 08:21; Admin Dose 50 MG; Start 05/01/17 at 09:00 Venlafaxine HCl (Effexor Xr) 75 mg DAILY PO Last administered on 05/04/17 08:21 ; Admin Dose 75 MG; Start 05/01/17 at 09:00 Acetaminophen (Tylenol Tab) 650 mg Q6H PRN PO PAIN AND OR ELEVATED TEMP Last administered on 05/04/17 06:34; Admin Dose 650 MG; Start 05/01/17 at 04:00 Ondansetron HCl (Zofran Inj) 4 mg Q6H PRN IV NAUSEA AND/OR VOMITING; Start 05/01 at 04:00 Morphine Sulfate (morphine) 2 mg Q4H PRN IV PAIN LEVEL 6-10 Last administered on 05/03/17 02:46; Admin Dose 2 MG; Start 05/01/17 at 04:00 Heparin Sodium (Porcine) (Heparin (5000 Units/0.5 ml)) 5,000 unit BID SC Last administered on 05/04/17 08:23; Admin Dose 5,000 UNIT; Start 05/01/17 at 09:00 Diagnostic Test (Pha) (Accu-Chek) 1 ea 02 XX ; Start 05/02/17 at 02:00 Insulin Glargine (Lantus) 10 unit QHS SC Last administered on 05/03/17 21:09; Admin Dose 10 UNIT; Start 05/01/17 at 21:00 Miscellaneous Information 1 ea NOTE XX ; Start 05/01/17 at 04:00 Glucose (Glutose) 15 gm Q15M PRN PO DECREASED GLUCOSE; Start 05/01/17 at 04:00 Glucose (Glutose) 22.5 gm Q15M PRN PO DECREASED GLUCOSE; Start 05/01/17 at 04:00 Dextrose (D50w Syringe) 25 ml Q15M PRN IV DECREASED GLUCOSE; Start 05/01/17 at 04:00 Dextrose (D50w Syringe) 50 ml Q15M PRN IV DECREASED GLUCOSE; Start 05/01/17 at 04:00 Glucagon (Glucagen) 1 mg Q15M PRN IM DECREASED GLUCOSE; Start 05/01/17 at 04:00 Glucose (Glutose) 15 gm Q15M PRN BUCCAL DECREASED GLUCOSE; Start 05/01/17 at 04: 00 Phenazopyridine HCl (Pyridium) 100 mg Q8 PO Last administered on 05/04/17t 06:24 ; Admin Dose 100 MG; Start 05/03/17 at 01:00 Procedures Procedures Name: DIVINAVIKASHOLGA Age/Sex: 61/F Attend Dr: SKYLER CARMICHAEL MD Acct: [id number] MR# : [id number] : 1955 [place] [facility] [place] Admit: 05/01/17 Specimen: [id number] Status: Resulted [place]ulfo: 05/03/17- Rcvd: 05/03 Source: STARLA HERNDON Sp Descrip: Procedure Result Microbiology URINE CULTURE Preliminary Organism 1 GRAM NEGATIVE CHIVO COLONY COUNT >100,000 CFU/ml MARIA DEL CARMEN AGUILAR NP May 04, 2017 11:05
[2017-05-04] MEDS ORDERED: CEFTRIAXONE 1 GM/50 ML (PMX) 50 ML IVPB SCH (12:00)
[2017-05-04] MEDS: morphine 2 MG INJ IV PRN (18:34)
[2017-05-04] MEDS: ATORVASTATIN 80 MG TAB PO SCH (20:48)
[2017-05-04] MEDS: INSULIN GLARGINE [LANtus] 3 ML PEN SC SCH (20:51)
[2017-05-04] MEDS: ACCU-CHEK XX SCH (20:57)
[2017-05-05] VITALS (11 sets, daily range): BP systolic 97–133; BP diastolic 56–68; PULSE 82–95; RESP 17–18
[2017-05-05] MEDS: ACETAMINOPHEN 325 MG TAB PO PRN ×2 (04:26→23:40)
[2017-05-05] MEDS: PHENAZOPYRIDINE 100 MG TAB PO SCH ×3 (05:23→21:04)
[2017-05-05 07:40] LABS: BASOPHIL # 0.1 10^3/ul (0.0-0.1); BASOPHILS % 0.7 % (0.0-2.0); EOSINOPHILS # 0.9 10^3/ul (0.0-0.5); EOSINOPHILS % 8.4 % (0.0-7.0); HEMATOCRIT 32.1 % (37.0-47.0); HEMOGLOBIN 9.8 g/dl (12.0-16.0); LYMPHOCYTES # 4.8 10^3/ul (0.8-2.9); LYMPHOCYTES % 46.6 % (15.0-51.0); MEAN CORPUSCULAR HEMOGLOBIN 29.6 pg (29.0-33.0); MEAN CORPUSCULAR HGB CONC 30.5 g/dl (32.0-37.0); MONOCYTE # 0.8 10^3/ul (0.3-0.9); MONOCYTES % 7.4 % (0.0-11.0); NEUTROPHILS % 36.3 % (39.0-77.0); PLATELET COUNT 419 10^3/UL (140-415); RED BLOOD COUNT 3.31 10^6/ul (4.20-5.40); RED CELL DISTRIBUTION WIDTH 15.9 % (11.5-14.5); WHITE BLOOD COUNT 10.3 10^3/ul (4.8-10.8)
[2017-05-05] MEDS: INSULIN ASPART [NOVOLOG] 3 ML PEN SC SCH ×4 (08:00→21:00)
[2017-05-05 08:06] LABS: MAGNESIUM 1.8 mg/dl (1.7-2.5); PHOSPHORUS 5.3 mg/dl (2.5-4.9)
[2017-05-05 08:09] LABS: CALCIUM 9.1 mg/dl (8.4-10.2); CREATININE 0.64 mg/dl (0.44-1.00); POTASSIUM 3.7 mmol/L (3.5-5.1)
[2017-05-05] MEDS: GABAPENTIN 300 MG CAP PO SCH ×2 (08:39→21:04)
[2017-05-05] MEDS: SERTRALINE 50 MG TAB PO SCH (08:39)
[2017-05-05] MEDS: VENLAFAXINE (XR) 75 MG CAP PO SCH (08:39)
[2017-05-05] MEDS: FERROUS SULFATE (EC) 325 MG TAB PO SCH (08:39)
[2017-05-05] MEDS: METOPROLOL 25 MG TAB PO SCH ×2 (08:40→21:00)
[2017-05-05] MEDS: LISINOPRIL 10 MG TAB PO SCH (08:40)
[2017-05-05] MEDS: HEPARIN 5,000 UNIT/0.5 ML VIAL SC SCH ×2 (08:45→21:06)
[2017-05-05] MEDS: ERTAPENEM SODIUM 1 GM in SOD CHLORIDE 0.9% 100 ML IVPB SCH (11:43)
--- NOTE | 2017-05-05 14:15 | PN ---
Date/Time of Note Date/Time of Note DATE: 05/05/17 TIME: 14:13 Assessment/Plan VTE Prophylaxis VTE Prophylaxis Intervention: heparin Lines/Catheters IV [facility] Type (from [facility]): Peripheral IV Urinary Cath still in place: No Assessment/Plan Chief Complaint/Hosp Course 1. Right-sided chest pain. Recent history of chest wall trauma secondary to fall. Current chest x-ray negative for any rib fractures. Continue pain control. 2. Bilateral knee pain. Bilateral knee MRI showing degenerative changes with no evidence of any acute fractures. Continue pain control. 3. Deconditioning. Continue physical therapy. Physical therapy recommending acute rehabilitation evaluation. 4. Type 2 diabetes mellitus. Continue sliding scale insulin. Blood sugars well controlled. 5. Normocytic, normochromic anemia. Monitor H&H closely. Obtain iron panel. 6. Essential hypertension. Continue antihypertensives. 7. Depression. Continue antidepressants. 8. Dyslipidemia. Continue statins. 9. K. pneumoniae ESBL UTI. Continue antibiotics. Obtain ID consult. 10. Fluids, electrolytes, and nutrition. Carbohydrate controlled diet. 11. DVT prophylaxis with subcutaneous heparin. 12. Plan. Continue pain control. Obtain ID consult. Case discussed with Dr. Haji. Problems: Subjective 24 Hr Interval Summary Free Text/Dictation Remains afebrile. Exam/Review of Systems Vital Signs Vitals Vital Signs Date Time Temp Pulse Resp B/P Pulse Ox O2 Delivery O2 Flow Rate FiO2 05/05/17 12:19 82 05/05/17 11:24 98.6 18 124/68 95 Intake and Output 05/04/17 05/04/17 05/05/17 15:00 23:00 07:00 Intake Total 900 ml 350 ml Balance 900 ml 350 ml Exam General: Obese 61 year-old female lying in bed in no apparent distress. HEENT: Normocephalic, atraumatic. Eyes: Anicteric sclerae, conjunctivae clear. ENT: Nasal septum midline, oral mucosa moist. Neck supple, no JVD noticed. Respiratory: Bilaterally clear breath sounds. No use of accessory muscles of respiration. No adventitious breath sounds. Cardiovascular: S1, S2 heard. No murmurs or gallops. Abdomen: Soft, nontender, and nondistended. Bowel sounds positive in all 4 quadrants. Genitourinary: Deferred. Extremities: No cyanosis, no clubbing, no edema. Peripheral pulses palpable. Bilateral knee joint tenderness. Neurologic: Cranial nerves II through XII grossly intact. The patient is awake, alert, and oriented. Skin: Normal skin turgor. No skin rashes. Results Result Diagram: 05/05/17 0657 05/05/17 0657 Results 24 hrs Laboratory Tests Test 05/04/17 17:04 05/04/17 20:35 05/05/17 06:57 05/05/17 07:48 Bedside Glucose 100 112 91 White Blood Count 10.3 # Red Blood Count 3.31 L Hemoglobin 9.8 L Hematocrit 32.1 L Mean Corpuscular Volume 97.0 Mean Corpuscular Hemoglobin 29.6 Mean Corpuscular Hemoglobin Concent 30.5 L Red Cell Distribution Width 15.9 H Platelet Count 419 H Mean Platelet Volume 9.0 Neutrophils % 36.3 L Lymphocytes % 46.6 Monocytes % 7.4 Eosinophils % 8.4 H Basophils % 0.7 Nucleated Red Blood Cells % 0.0 Neutrophils # (Manual) 3.8 Lymphocytes # 4.8 H Monocytes # 0.8 Eosinophils # 0.9 H Basophils # 0.1 Nucleated Red Blood Cells # 0.0 Sodium Level 138 Potassium Level 3.7 Chloride Level 107 Carbon Dioxide Level 26 Anion Gap 9 Blood Urea Nitrogen 6 L Creatinine 0.64 Glucose Level 96 Calcium Level 9.1 Phosphorus Level 5.3 H Magnesium Level 1.8 Test 05/05/17 11:44 Bedside Glucose 122 Medications Medications Current Medications Atorvastatin Calcium (Lipitor) 80 mg QHS PO Last administered on 05/04/17 20:48 ; Admin Dose 80 MG; Start 05/01/17 at 21:00 Ferrous Sulfate (Ferrous Sulfate (Ec)) 325 mg DAILY PO Last administered on 05/05 08:39; Admin Dose 325 MG; Start 05/01/17 at 09:00 Gabapentin (Neurontin) 300 mg BID PO Last administered on 05/05/17 08:39; Admin Dose 300 MG; Start 05/01/17 at 09:00 Lisinopril (Zestril) 10 mg DAILY PO Last administered on 05/05/17 08:40; Admin Dose 10 MG; Start 05/01/17 at 09:00 Metoprolol Tartrate (Lopressor) 25 mg BID PO Last administered on 05/05/17 08: 40; Admin Dose 25 MG; Start 05/01/17 at 09:00 Polyethylene Glycol (Miralax) 17 gm DAILY PRN PO CONSTIPATION; Start 05/01/17 at 04:00 Sertraline HCl (Zoloft) 50 mg DAILY PO Last administered on 05/05/17 08:39; Admin Dose 50 MG; Start 05/01/17 at 09:00 Venlafaxine HCl (Effexor Xr) 75 mg DAILY PO Last administered on 05/05/17 08:39 ; Admin Dose 75 MG; Start 05/01/17 at 09:00 Acetaminophen (Tylenol Tab) 650 mg Q6H PRN PO PAIN AND OR ELEVATED TEMP Last administered on 05/05/17 04:26; Admin Dose 650 MG; Start 05/01/17 at 04:00 Ondansetron HCl (Zofran Inj) 4 mg Q6H PRN IV NAUSEA AND/OR VOMITING Last administered on 05/04/17 18:34; Admin Dose 4 MG; Start 05/01/17 at 04:00 Morphine Sulfate (morphine) 2 mg Q4H PRN IV PAIN LEVEL 6-10 Last administered on 05/04/17 18:34; Admin Dose 2 MG; Start 05/01/17 at 04:00 Heparin Sodium (Porcine) (Heparin (5000 Units/0.5 ml)) 5,000 unit BID SC Last administered on 05/05/17 08:45; Admin Dose 5,000 UNIT; Start 05/01/17 at 09:00 Diagnostic Test (Pha) (Accu-Chek) 1 ea 02 XX ; Start 05/02/17 at 02:00 Insulin Glargine (Lantus) 10 unit QHS SC Last administered on 05/04/17 20:51; Admin Dose 10 UNIT; Start 05/01/17 at 21:00 Miscellaneous Information 1 ea NOTE XX ; Start 05/01/17 at 04:00 Glucose (Glutose) 15 gm Q15M PRN PO DECREASED GLUCOSE; Start 05/01/17 at 04:00 Glucose (Glutose) 22.5 gm Q15M PRN PO DECREASED GLUCOSE; Start 05/01/17 at 04:00 Dextrose (D50w Syringe) 25 ml Q15M PRN IV DECREASED GLUCOSE; Start 05/01/17 at 04:00 Dextrose (D50w Syringe) 50 ml Q15M PRN IV DECREASED GLUCOSE; Start 05/01/17 at 04:00 Glucagon (Glucagen) 1 mg Q15M PRN IM DECREASED GLUCOSE; Start 05/01/17 at 04:00 Glucose (Glutose) 15 gm Q15M PRN BUCCAL DECREASED GLUCOSE; Start 05/01/17 at 04: 00 Phenazopyridine HCl 100 mg 100 mg Q8 PO Last administered on 05/05/17 13:08; Admin Dose 100 MG; Start 05/03/17 at 01:00 Ertapenem/Sodium Chloride (Invanz/NS) 100 ml @ 200 mls/hr Q24H IVPB Last administered on 05/05/17 11:43; Admin Dose 200 MLS/HR; Start 05/05/17 at 11:00 MARIA DEL CARMEN AGUILAR NP May 05, 2017 14:15
[2017-05-05] MEDS: ATORVASTATIN 80 MG TAB PO SCH (21:04)
[2017-05-05] MEDS: INSULIN GLARGINE [LANtus] 3 ML PEN SC SCH (21:07)
[2017-05-06] VITALS (11 sets, daily range): BP systolic 90–117; BP diastolic 48–61; PULSE 80–105; RESP 17–18
[2017-05-06] MEDS: ERTAPENEM SODIUM 1 GM in SOD CHLORIDE 0.9% 100 ML IVPB SCH ×2 (00:37→11:32)
[2017-05-06] MEDS: ACCU-CHEK XX SCH (02:48)
--- NOTE | 2017-05-06 05:00 | CONS ---
DATE OF ADMISSION: 05/01/2017 DATE OF CONSULTATION: 05/04/2017 Infectious disease consultation dictated for Dr. Pranav Stewart. HISTORY OF PRESENT ILLNESS: The patient is a 61-year-old female who was admitted to the hospital on 05/01 with a chief complaint of bilateral knee and rib pain. About 6 months ago, the patient allegedly fell injuring her rib and her knees at that time. Since that time, she has been unable to walk or get out of bed without assistance and/or pain. On admission, she was noted to be in mild distress. Her white count was 13,500, platelets are 546,000, the hemoglobin was 9.2 g. Urinalysis: Specific gravity of 1.003, pH 6, clear, light yellow, trace leukocyte esterase, 2 WBCs, 6 RBCs, a few urine bacteria and a few yeast. The culture grew Klebsiella pneumoniae, multidrug- resistant, only sensitive to carbapenem, Zosyn and amikacin, being resistant to all the rest. PAST MEDICAL HISTORY: Hypertension, diabetes and relative hyperkalemia and a history of a left foot ulcer. ALLERGIES: SHE HAS NO KNOWN ALLERGIES. MEDICATION: Include: 1. Pyridium 100 mg 2 every 8 hours. 2. Atorvastatin 80 mg daily. 3. Lantus insulin 10 units. 4. Ferrous sulfate 325 mg daily. 5. Gabapentin 300 mg twice a day. 6. Lisinopril 10 mg daily. 7. Metoprolol tartrate 25 mg b.i.d. 8. Sertraline 50 mg daily. 9. Venlafaxine 75 mg daily. REVIEW OF SYSTEMS: Indicate that the patient has point tenderness at the place that the ribs were fractured, which are shown to be healing well presently on chest x-ray without any pneumonia or any other involvement of the chest cavity. The patient's MRI of the knees revealed bilateral tricompartmental arthritis and full-thickness anterior cruciate ligament tears. PHYSICAL EXAMINATION: GENERAL APPEARANCE: Reveals a well-nourished, well-developed female, lying in bed, no acute distress. HEENT: Pupils equal, round, react to light. Extraocular movements are full. The mouth has moist mucous membranes. CHEST: Clear to auscultation. HEART: Regular without gallops, murmurs, or rubs. ABDOMEN: Soft, obese. No palpable organs or masses. The patient has tenderness over her right anterolateral ribs inferiorly. EXTREMITIES: Reveal mild tenderness on moving the knees with [id number] arthritic deformities. There is no edema. IMPRESSION: 1. Extended-spectrum beta-lactamase Klebsiella pneumoniae urinary tract infection. 2. Severe tricompartmental osteoarthritis, both knees; bilateral full-thickness cruciate ligament areas and bilateral complex meniscus cartilaginous tears. 3. Healing rib fractures, right side. 4. Hypertension. 5. High blood pressure. RECOMMENDATIONS: Treat the patient with Invanz 1 g IV daily for 5 days. I am seeing this patient for Dr. Pranav Stewart. Dictated By: Justina Lucero MD /sheron/adam /Document#: [id number]
[2017-05-06] MEDS: PHENAZOPYRIDINE 100 MG TAB PO SCH ×3 (06:39→22:10)
[2017-05-06 07:52] LABS: WHITE BLOOD COUNT 8.9 10^3/ul (4.8-10.8)
[2017-05-06 07:53] LABS: BASOPHIL # 0.1 10^3/ul (0.0-0.1); BASOPHILS % 0.8 % (0.0-2.0); EOSINOPHILS # 0.7 10^3/ul (0.0-0.5); EOSINOPHILS % 7.8 % (0.0-7.0); HEMATOCRIT 32.9 % (37.0-47.0); HEMOGLOBIN 10.1 g/dl (12.0-16.0); LYMPHOCYTES # 4.7 10^3/ul (0.8-2.9); LYMPHOCYTES % 52.3 % (15.0-51.0); MEAN CORPUSCULAR HEMOGLOBIN 30.1 pg (29.0-33.0); MEAN CORPUSCULAR HGB CONC 30.7 g/dl (32.0-37.0); MEAN CORPUSCULAR VOLUME 97.9 fl (82.0-101.0); MONOCYTE # 0.8 10^3/ul (0.3-0.9); MONOCYTES % 8.7 % (0.0-11.0); PLATELET COUNT 403 10^3/UL (140-415); RED BLOOD COUNT 3.36 10^6/ul (4.20-5.40); RED CELL DISTRIBUTION WIDTH 15.8 % (11.5-14.5)
[2017-05-06] MEDS: INSULIN ASPART [NOVOLOG] 3 ML PEN SC SCH ×4 (08:00→21:00)
[2017-05-06 08:12] LABS: CALCIUM 9.3 mg/dl (8.4-10.2); CREATININE 0.67 mg/dl (0.44-1.00); POTASSIUM 3.9 mmol/L (3.5-5.1)
[2017-05-06 08:14] LABS: MAGNESIUM 1.7 mg/dl (1.7-2.5); PHOSPHORUS 6.2 mg/dl (2.5-4.9)
[2017-05-06] MEDS: ACETAMINOPHEN 325 MG TAB PO PRN ×2 (08:40→22:13)
[2017-05-06] MEDS: VENLAFAXINE (XR) 75 MG CAP PO SCH (08:41)
[2017-05-06] MEDS: FERROUS SULFATE (EC) 325 MG TAB PO SCH (08:41)
[2017-05-06] MEDS: LISINOPRIL 10 MG TAB PO SCH (08:42)
[2017-05-06] MEDS: GABAPENTIN 300 MG CAP PO SCH ×2 (08:42→22:10)
[2017-05-06] MEDS: SERTRALINE 50 MG TAB PO SCH (08:42)
[2017-05-06] MEDS: METOPROLOL 25 MG TAB PO SCH ×2 (08:42→22:10)
[2017-05-06] MEDS: HEPARIN 5,000 UNIT/0.5 ML VIAL SC SCH ×2 (08:51→22:22)
[2017-05-06] MEDS: morphine 2 MG INJ IV PRN (11:32)
--- NOTE | 2017-05-06 14:05 | RADRPT ---
PROCEDURE: Retroperitoneal US. CLINICAL INDICATION: Urinary tract infection TECHNIQUE: Multiple sonographic images of the retroperitoneum were obtained. The images were revi ewed on a PACS workstation. COMPARISON: No prior studies are available for comparison. FINDINGS: The right kidney measures 11.9 x 4.7 x 5.1 cm. The left kidney measures 10.2 x 4.5 x 3.9 cm. The renal parenchymal echotexture is normal. There is mild left hydronephrosis. There is no right hydronephrosis. There is no focal renal mass or calcification seen. The bladder is not visualized, likely due to underdistension IMPRESSION: Mild left hydronephrosis. There is no right hydronephrosis. The bladder is not visualized. RPTAT: EE Physician Tom Date Time Electronically viewed and signed by Physician Tom on 05/06/2017 14:05 JAN
--- NOTE | 2017-05-06 17:50 | PN ---
DATE: 05/06/2017 SUBJECTIVE DATA: No acute changes overnight per report. The patient is alert, looks comfortable. Denies pain. No nausea, vomiting, or diarrhea. No dysuria. No fevers. Temperature 97.7, pulse 86, respirations 18, blood pressure 109/58, saturation 95 on room air. LABORATORY DATA: WBC 8.9, platelets 403, no shift, no bands. BUN 5, creatinine 0.67. MICROBIOLOGY: Renal ultrasound revealed no right hydronephrosis, mild left hydronephrosis. The bladder is not visualized. Urine culture on admission grew Klebsiella ESBL antimicrobials. Patient was started on Invanz yesterday. PHYSICAL EXAMINATION: GENERAL: This is a morbidly obese, elderly woman, who is in no distress. The patient is alert, oriented, and follows commands. HEENT: Head atraumatic, normocephalic. Sclerae anicteric. Buccal mucosa pink. NECK: Obese. CHEST: Rise symmetrical. Breath sounds clear. HEART: S1, S2. ABDOMEN: Soft, bowel sounds present. EXTREMITIES: Without cyanosis. ASSESSMENT: 1. Extended-spectrum beta-lactamase Klebsiella pneumonia urinary tract infection. 2. Morbid obesity. 3. Hypertension. 4. Osteoarthritis. PLAN: The patient remains stable. Continue present care. Complete antibiotics for 4 more days. Dictated By: Chery Montgomery NP /sheron/lisy /Document#: [id number]
[2017-05-06] MEDS: ATORVASTATIN 80 MG TAB PO SCH (22:10)
[2017-05-06] MEDS: INSULIN GLARGINE [LANtus] 3 ML PEN SC SCH (22:23)
[2017-05-07 00:06] VITALS: PULSE 83
[2017-05-07 00:24] VITALS: BP 98/57; RESP 17
[2017-05-07] MEDS: ERTAPENEM SODIUM 1 GM in SOD CHLORIDE 0.9% 100 ML IVPB SCH (01:30)
[2017-05-07] MEDS: ACCU-CHEK XX SCH (01:30)
[2017-05-07 04:00] VITALS: BP 123/60; RESP 17
[2017-05-07 04:02] VITALS: PULSE 83
[2017-05-07] MEDS: PHENAZOPYRIDINE 100 MG TAB PO SCH (06:18)
[2017-05-07 07:47] VITALS: BP 100/57; RESP 18
[2017-05-07] MEDS: INSULIN ASPART [NOVOLOG] 3 ML PEN SC SCH (08:00)
[2017-05-07] MEDS: VENLAFAXINE (XR) 75 MG CAP PO SCH (08:18)
[2017-05-07] MEDS: FERROUS SULFATE (EC) 325 MG TAB PO SCH (08:18)
[2017-05-07] MEDS: GABAPENTIN 300 MG CAP PO SCH (08:20)
[2017-05-07] MEDS: SERTRALINE 50 MG TAB PO SCH (08:20)
[2017-05-07] MEDS: LISINOPRIL 10 MG TAB PO SCH (08:20)
[2017-05-07] MEDS: METOPROLOL 25 MG TAB PO SCH (08:20)
[2017-05-07] MEDS: ACETAMINOPHEN 325 MG TAB PO PRN (08:21)
[2017-05-07 08:22] VITALS: PULSE 92
[2017-05-07] MEDS: HEPARIN 5,000 UNIT/0.5 ML VIAL SC SCH (08:22)
--- NOTE | 2017-05-07 12:59 | DS ---
DATE OF ADMISSION: 05/01/2017 DATE OF DISCHARGE: 05/06/2017 FINAL DIAGNOSES: 1. Chest wall pain, most probably secondary to musculoskeletal origin. Resolved. 2. Bilateral knee pain. Bilateral knee MRI showing degenerative changes with no evidence of acute fractures. 3. Type 2 diabetes mellitus. 4. Normocytic normochromic anemia. 5. Essential hypertension. 6. Depression. 7. Dyslipidemia. 8. Klebsiella pneumoniae, ESBL, urinary tract infection. 9. Obesity. CONSULTANTS: Dr. Justina Lucreo, Infectious Diseases. HOSPITAL COURSE: This is a 61-year-old obese female patient with history of diabetes mellitus, essential hypertension, and dyslipidemia, who presented to [facility] with complaint of right-sided chest pain. She was transferred to [facility] because of insurance reasons. The patient was admitted to inpatient telemetry floor. The patient's troponins from the referring hospital were negative. The patient's chest wall pain resolved over the course of her hospital stay. The patient had a history of a fall with subsequent left-sided rib fractures in the recent past. The patient's chest x-ray was negative for any acute fracture of the ribs. The patient was noticed to have bilateral knee pain. The patient's bilateral knee MRI showed degenerative changes with no evidence of any acute fractures. The patient was noticed to be severely deconditioned. The patient was seen by Physical Therapy, and Physical Therapy recommended longterm facility placement. The patient's hyperkalemia was resolved after the patient was hospitalized. The patient's hyperkalemia that was evident on her visit to the referring hospital could have been probably secondary to her dehydration and acute kidney injury. The patient was noticed to have normocytic normochromic anemia. The patient's iron panel showed iron deficiency. Consequently, the patient was started on iron supplements. The patient has underlying essential hypertension. She was maintained on antihypertensives for the same. She has underlying dyslipidemia. She was maintained on statins for the same. The patient's urine culture showed positive Klebsiella pneumoniae, ESBL. Infectious disease consult was sought. Infectious Disease evaluated the patient, and Infectious Disease recommended to continue the patient on IV carbapenem for at least 5 days. The patient had no evidence of any septic shock. The patient had a stable hospital course. The patient will be discharged to a longterm facility as per recommendations of Physical Therapy. DISCHARGE DISPOSITION/PLAN: The patient will be discharged to [facility]. The patient will continue medications as per medication reconciliation. The patient will continue IV antibiotics until 05/11/2017. Nursing was instructed to endorse discharge instructions to the longterm facility. DISCHARGE CONDITION: Stable. DISCHARGE MEDICATIONS: 1. [place] 5/325 mg 1 tab p.o. q.6h. p.r.n. pain. 2. Lisinopril 10 mg p.o. daily. 3. Metoprolol 25 mg p.o. b.i.d. 4. Atorvastatin 80 mg p.o. daily. 5. Ferrous sulfate 325 mg p.o. daily. 6. Gabapentin 300 mg p.o. b.i.d. 7. Glipizide 5 mg p.o. b.i.d. 8. Metformin 1000 mg p.o. b.i.d. 9. Multivitamin 1 tablet p.o. daily. 10. Omeprazole 20 mg p.o. daily. 11. Polyethylene glycol 17 g p.o. daily p.r.n. constipation. 12. Start trial in sertraline 50 mg p.o. daily. 13. Tramadol 50 mg p.o. q.4h. p.r.n. pain. 14. Venlafaxine 75 mg p.o. daily. 15. Invanz 1g IVPB for 5 days. PERTINENT LABORATORY AND DIAGNOSTIC DATA: 1. Urine culture positive for Klebsiella pneumoniae, ESBL. 2. Latest CBC: WBC 8.9, hemoglobin 10.1, hematocrit 32.9, platelet count 403,000. 3. Latest BMP: Sodium 140, potassium 3.9, chloride 109, carbon dioxide 25, anion gap 10, BUN 5, creatinine 0.6, glucose 104, calcium 9.3, phosphorus 6.2, magnesium 1.73. 4. Hemoglobin A1c 5.3. 5. Fasting lipid panel: Triglycerides 207, total cholesterol 126, LDL 48, HDL 45. 6. Iron panel: Iron 33, TIBC 175, iron saturation 90, Ferritin 178. 7. Left knee MRI: Tricompartmental osteoarthrosis, severe and predominant at the medial femoral/tibial compartment. Extensive degenerative tearing and partial laceration of the body and posterior of the medial meniscus. Chronic full-thickness anterior cruciate ligament tear. Moderate-sized knee joint effusion with synovitis and numerous posterior bodies. 8. Right knee MRI: Linear band of sclerosis at the proximal tibial metaphysis medially without edema, likely healing changes from a previous stress or insufficiency fracture. Tricompartmental osteoarthrosis, severe and predominant, medial femoral/tibial compartment with a mild stress response at the medial tibial plateau. Extensive degenerative tearing of the body and posterior horn of the medial meniscus. Chronic full- thickness anterior cruciate ligament tear. 9. Renal ultrasound: Mild left hydronephrosis. No right hydronephrosis. 10. Chest x-ray: No acute infiltrate. No evidence for pleural effusion. No pneumothorax. At this time, I would like to thank all the consultants for seeing the patient and providing clinical recommendations. The case and management of this patient was fully discussed with Dr. Smith. Approximately 40 minutes was spent on coordinating the discharge on this patient. Dictated By: Rodrigue Arriaza NP /sheron/wayne /Document#: [id number] TITO
--- NOTE | 2017-05-07 13:17 | DS ---
Date/Time of Note Date/Time of Note DATE: 05/07/17 TIME: 13:17 Discharge Summary Admission/Discharge Info Admit Date/Time May 01, 2017 at 02:36 Discharge Date/Time May 07, 2017 at 11:00 Discharge Diagnosis 1. Chest wall pain, most probably secondary to musculoskeletal origin. Resolved. 2. Bilateral knee pain. Bilateral knee MRI showing degenerative changes with no evidence of acute fractures. 3. Type 2 diabetes mellitus. 4. Normocytic normochromic anemia. 5. Essential hypertension. 6. Depression. 7. Dyslipidemia. 8. Klebsiella pneumoniae, ESBL, urinary tract infection. 9. Obesity. Patient Condition: Stable Consults Abel Lucero MD, Infectious Diseases. Hx of Present Illness This is a 61-year-old obese female patient with history of diabetes mellitus, essential hypertension, and dyslipidemia, who presented to [facility] with complaint of right-sided chest pain. She was transferred to [facility] because of insurance reasons. Hospital Course The patient was admitted to inpatient telemetry floor. The patient's troponins from the referring hospital were negative. The patient's chest wall pain resolved over the course of her hospital stay. The patient had a history of a fall with subsequent left-sided rib fractures in the recent past. The patient's chest x-ray was negative for any acute fracture of the ribs. The patient was noticed to have bilateral knee pain. The patient's bilateral knee MRI showed degenerative changes with no evidence of any acute fractures. The patient was noticed to be severely deconditioned. The patient was seen by Physical Therapy, and Physical Therapy recommended care home facility placement. The patient's hyperkalemia was resolved after the patient was hospitalized. The patient's hyperkalemia that was evident on her visit to the referring hospital could have been probably secondary to her dehydration and acute kidney injury. The patient was noticed to have normocytic normochromic anemia. The patient's iron panel showed iron deficiency. Consequently, the patient was started on iron supplements. The patient has underlying essential hypertension. She was maintained on antihypertensives for the same. She has underlying dyslipidemia. She was maintained on statins for the same. The patient's urine culture showed positive Klebsiella pneumoniae, ESBL. Infectious disease consult was sought. Infectious Disease evaluated the patient, and Infectious Disease recommended to continue the patient on IV carbapenem for at least 5 days. The patient had no evidence of any septic shock. The patient had a stable hospital course. The patient will be discharged to a care home facility as per recommendations of Physical Therapy. DISCHARGE DISPOSITION/PLAN: The patient will be discharged to [facility]. The patient will continue medications as per medication reconciliation. The patient will continue IV antibiotics until 05/11. Nursing was instructed to endorse discharge instructions to the care home facility. The patient had discharge orders on 05/06/2017 to be discharged to a SNF. For unclear reasons the patient's discharge was held on 05/06/2017. The patient was discharged to a care home facility on 05/07/2017. The patient's clinical status remained unchanged. Case discussed with Dr. Smith. Home Meds Active Scripts Hydrocodone/Acetaminophen (Ottertail 5-325 Tablet) 1 Each Tablet, 1 EACH PO Q4 Y for PAIN, #30 TAB Prov:DELORIS GARCIA 05/02/17 Metoprolol Tartrate* (Lopressor*) 25 Mg Tab, 25 MG PO BID for 30 Days, TAB Prov:DELORIS GARCIA 05/02/17 Lisinopril* (Lisinopril*) 10 Mg Tablet, 10 MG PO DAILY for 30 Days, TAB Prov:DELORIS GARCIA 05/02/17 Multivitamin (MULTI VITAMIN DAILY) 1 Each Tablet, 1 TAB PO DAILY, #30 TAB 1 Refill Prov:OZ EARLY MD 06/14/16 Lactobacillus Rhamnosus GG (Culturelle) 1 Each Capsule, 1 EACH PO BID, #30 CAP Prov:OZ EARLY MD 06/14/16 Glipizide* (Glipizide*) 5 Mg Tablet, 5 MG PO BID, #60 TAB Prov:OZ EARLY MD 06/14/16 Metformin* (Glucophage*) 1,000 Mg Tablet, 1000 MG PO BID, #60 TAB Prov:OZ EARLY MD 06/14/16 Reported Medications Sertraline Hcl* (Sertraline Hcl*) 50 Mg Tablet, 50 MG PO DAILY, #30 TAB 05/01/17 Ferrous Sulfate* (Ferrous Sulfate*) 325 Mg Tabec, 325 MG PO DAILY, TAB 05/01/17 Acetaminophen* (Acetaminophen*) 500 MG Extra Strength Tablet, 500 MG PO Q6 Y for PAIN, TAB 05/01/17 Gabapentin* (Gabapentin*) 300 Mg Capsule, 300 MG PO BID, #60 CAP 05/01/17 Polyethylene Glycol* (Polyethylene Glycol*) 17 Gm Powd.pack, 17 GM PO DAILY Y for CONSTIPATION, #30 PACKET 05/01/17 Atorvastatin* (Atorvastatin*) 80 Mg Tablet, 80 MG PO QHS, #30 TAB 05/01/17 Venlafaxine Hcl* (Effexor XR*) 75 Mg Tab.er.24, 75 MG PO DAILY, TAB.SA 05/01/17 Tramadol Hcl* (Ultram*) 50 Mg Tablet, 50 MG PO Q4H WHILE AWAKE Y for PAIN, TAB 06/11/16 Omeprazole* (Omeprazole*) 20 Mg Capsule.dr, 20 MG PO DAILY, #30 CAP 06/11/16 Discontinued Reported Medications Gabapentin* (Gabapentin*) 300 Mg Capsule, 300 MG PO TID, #90 CAP 06/11/16 Atorvastatin* (Atorvastatin*) 80 Mg Tablet, 80 MG PO DAILY, #30 TAB 06/11/16 Lisinopril* (Lisinopril*) 10 Mg Tablet, 10 MG PO DAILY, #30 TAB 05/01/17 Metoprolol Tartrate* (Lopressor*) 25 Mg Tab, 25 MG PO BID, #60 TAB 05/01/17 Metformin* (Glucophage*) 1,000 Mg Tablet, 1000 MG PO BID, #60 TAB 05/01/17 Lisinopril* (Lisinopril*) 40 Mg Tablet, 40 MG PO DAILY, #30 TAB 06/11/16 Labetalol Hcl* (Labetalol Hcl*) 100 Mg Tablet, 100 MG PO TID, TAB 06/11/16 Discontinued Scripts Levofloxacin* (Levaquin*) 500 Mg Tablet, 500 MG PO DAILY, #5 TAB Prov:DELORIS GARCIA 05/02/17 Clindamycin Hcl* (Clindamycin Hcl*) 300 Mg Capsule, 300 MG PO TID, #30 CAP Prov:OZ EARLY MD 06/14/16 Primary Care Provider [facility] Time spent on discharge: > 30 minutes Pending Labs Laboratory Tests Test 05/06/17 17:10 05/06/17 22:09 05/07/17 01:27 05/07/17 08:17 Bedside Glucose 93mg/dL (70-220) 96mg/dL (70-220) 87mg/dL (70-220) 87mg/dL (70-220) MARIA DEL CARMEN AGUILAR NP May 07, 2017 13:17
== END 2017-05-07 11:00 | DRG 313 ==
LOC: MS4 05-01 02:36
PROVIDERS: ADMIT Internal Medicine; ATTEND Internal Medicine
DX: R07.89 Other chest pain (principal); N17.9 Acute kidney failure, unspecified; I10 Essential (primary) hypertension; E11.9 Type 2 diabetes mellitus without complications; N39.0 Urinary tract infection, site not specified; B96.1 Klebsiella pneumoniae [K. pneumoniae] as the cause of diseases classified elsewhere; E87.5 Hyperkalemia; D64.9 Anemia, unspecified; F32.9 Major depressive disorder, single episode, unspecified; E78.5 Hyperlipidemia, unspecified; Z16.12 Extended spectrum beta lactamase (ESBL) resistance; E66.9 Obesity, unspecified; Z68.33 Body mass index [BMI] 33.0-33.9, adult; Z91.81 History of falling; E86.0 Dehydration; S22.31XD Fracture of one rib, right side, subsequent encounter for fracture with routine healing; M17.0 Bilateral primary osteoarthritis of knee; R07.81 Pleurodynia; G89.29 Other chronic pain
CPT/HCPCS: 71010; 73562; 73721; 76775; 80048; 80053; 80061; 81001; 82728; 82962; 83036; 83540; 83735; 84100; 85025; 87081; 87086; 97110; 97162; 97530; J0696; J1335; J1644; J1815; J2270; J2405; J3475

== ENCOUNTER 2017-12-15 06:12 | Day surgery (SDC) | END 2017-12-16 08:49 | disposition home or self-care (01) ==

== ENCOUNTER 2017-12-27 08:32 | Day surgery (SDC) | END 2017-12-27 15:35 | disposition home or self-care (01) ==